=== PATIENT | female | born 1955 ===

== ENCOUNTER → 2019-11-28 | Day surgery (SDC) | payer OTHER ==
[~2019-11-28] MED LIST: COZAAR100 MG PO; LIPITOR40 MG PO; MICROZIDE12.5 MG PO; PERCOCET 5-3251 EACH PO
== END | disposition home or self-care (01) ==
LOC: ADM 11-09 07:00 → CIR.AMB 11-14 07:00
DX: S52.532A Colles' fracture of left radius, initial encounter for closed fracture (principal)
CPT/HCPCS: 25609; 25118; 25280; C1776